=== PATIENT | male | born 1960 | race Caucasian/White ===

== ENCOUNTER → 2022-08-12 14:07 | Outpatient (CLI) | payer OTHER, SELFPAY ==
--- NOTE | 2022-08-12 14:10 | DI.RAD.S_ITS ---
PROCEDURE: XR CERVICAL SPINE 4V OR 5V INDICATIONS: NECK PAIN TECHNIQUE: 5 views of the cervical spine acquired. COMPARISON: None. FINDINGS: Bones: No fractures or dislocations to the C7-T1 level. Degenerative endplate changes, loss of disc height and bilateral facet hypertrophic changes throughout cervical spine is seen. Oblique images demonstrate bilateral bony foraminal stenosis at C5-6 and C6-7 levels. Soft tissues: No prevertebral soft tissue swelling. IMPRESSION: Degenerative disc disease throughout cervical spine. No acute fracture or dislocation. Bilateral bony foraminal stenosis at C5-6 and C6-7 levels seen on oblique views. Dictated by: Danny Yates M.D. on 08/12/2022 at 14:51 Approved by: Danny Yates M.D. on 08/12/2022 at 14:51
== END ==
PROVIDERS: Referring Provider Physical Medicine & Rehabilitation; Visit Provider Physical Medicine & Rehabilitation
DX: M50.30 Other cervical disc degeneration, unspecified cervical region (principal); M48.02 Spinal stenosis, cervical region
CPT/HCPCS: 72050